=== PATIENT | female | born 1950 | race Caucasian/White ===

== ENCOUNTER 2016-03-17 14:35 | Observation (INO) | payer OTHER ==
[~2016-03-17] VITALS: Ht 157.5 cm; Wt 77.1 kg
[2016-03-17] MEDS ORDERED: ASPI81TA28 PO (15:16)
[2016-03-17] MEDS ORDERED: BENZ100C84 PO (15:16)
[2016-03-17] MEDS ORDERED: ATOR-24 PO (15:16)
[2016-03-17] MEDS ORDERED: LEVO75TA PO (15:16)
[2016-03-17] MEDS ORDERED: LOSA1TAB PO (15:16)
[2016-03-17] MEDS ORDERED: MULT-513 PO (15:16)
[2016-03-17] MEDS ORDERED: ATEN50TA8 PO (15:16)
[2016-03-17] MEDS ORDERED: ASCO10003 PO (15:16)
[2016-03-17] MEDS ORDERED: CALC-335 PO (15:16)
[2016-03-17 15:26] LABS: HEMATOCRIT 40.4 % (37-47); MEAN CELL VOLUME 88.8 fL (80-100); MEAN CORPUSCULAR HEMOGLOBIN 29.7 pg (25-34); MEAN CORPUSCULAR HGB CONC 33.4 g/dl (32-36); MEAN PLATELET VOLUME 10.2 fL (7.4-10.4); PLATELET COUNT 436 K/uL (130-400); RED BLOOD COUNT 4.55 M/uL (4.2-5.4); WHITE BLOOD COUNT 24.38 K/uL (4.8-10.8)
[2016-03-17 15:34] LABS: INR 1.1 (0.9-1.1); PARTIAL THROMBOPLASTIN RATIO 1.2; PROTHROMBIN TIME (PATIENT) 11.4 SECONDS (9.0-12.0)
[2016-03-17 15:43] LABS: BUN/CREATININE RATIO 42.5 (10-20); CALCIUM 9.9 mg/dl (8.5-10.1); CREATININE 1.5 mg/dl (0.60-1.20); POTASSIUM 3.6 mmol/L (3.5-5.1)
[2016-03-17 16:13] LABS: BASO % 0.4 %; BASO ABS # 0.09 K/uL (0-0.2); COMPLETE YES; EOS % 1.1 %; IG% 3.3 %; LYMPH % 41.3 %; LYMPH ABS # 10.08 K/uL (1.2-3.4); MONO % 5.5 %; NEUT % 48.4 %
[2016-03-17] MEDS ORDERED: CIPROFLOXACIN 400MG / 200ML D5W IV STA (17:20)
[2016-03-17] MEDS ORDERED: GADAVIST IV PRN (17:30)
--- NOTE | 2016-03-17 18:12 | EMERGENCY ROOM VISIT NOTE ---
History Report prepared by Kermit: See Abdi Under the Supervision of: Dr. Kong Borja M.D. First contact with patient: 14:43 Chief Complaint: INFECTION Stated Complaint: CELLULITIS Nursing Triage Summary: Pt presents with cellulitis to right foot. Sent by PCP for labs, IV and possible admission. Sx began last Wed "didn't feel well with GI sx and I had a fever." History of Present Illness The patient is a 65 year old female who presents to the Emergency Room with complaints of persistent right foot cellulitis for the past six days. The infection started on the top of her foot and has been spreading over the rest of the foot. She also has pain and tenderness to the infected area. She has not had any recent cuts or injuries and is not sure how she got the infection. The patient was diagnosed with cellulitis by her PCP today, who referred her to the ED for IV antibiotics. She was seen by a PA at her PCP's office six days ago but was not started on any antibiotics. At that time she also had pain to two of the toes on her left foot but is not showing any signs of cellulitis and she has no pain to her left foot at this time. The patient had a fever of 102.4 six days ago, which has since resolved. She also had resolved nausea and dry heaving six days ago. The patient has never had cellulitis before. The patient denies any history of diabetes or other chronic problems. Source of History: patient Onset: six days Position: foot (right) Quality: other (cellulitis) Timing: other (persistent) Associated Symptoms: + fevers (resolved), + nausea (resolved) Review of Systems See HPI for pertinent positives & negatives. A total of 10 systems reviewed and were otherwise negative. Past Medical & Surgical Medical Problems: (1) Cellulitis (2) HLD (hyperlipidemia) Family History Patient reports no known family medical history. Social History Housing Status: lives with family Current/Historical Medications Scheduled Ascorbic Acid (Vitamin C), 1,000 MG PO DAILY Aspirin (Aspirin Ec), 81 MG PO DAILY Atenolol (Tenormin), 50 MG PO QPM Atorvastatin (Lipitor), 40 MG PO QPM Benzonatate (Tessalon Perles), 1 CAP PO BID Calcium Citrate-Vitamin D (Citracal Petites/Vitamin), 1 TAB PO BID Clindamycin HCl (Clindamycin HCl), 1 CAP PO TID Levothyroxine Sodium (Synthroid), 75 MCG PO DAILY Losartan Potassium (Cozaar), 25 MG PO DAILY Multivitamins/Minerals (Mvi With Minerals), 1 TAB PO DAILY Allergies Coded Allergies: No Known Allergies (Unverified , 03/17/16) Physical Exam Vital Signs Date Time Temp Pulse Resp B/P Pulse Ox O2 Delivery O2 Flow Rate FiO2 03/17/16 18:07 68 16 137/71 96 Room Air 03/17/16 16:10 63 18 134/73 97 Room Air 03/17/16 14:39 36.4 64 18 124/66 95 Room Air Physical Exam Constitutional: Vital signs reviewed. Eyes: Pupils are equal round reactive to light. Conjunctiva are noninjected. ENT: Pharynx is clear without erythema or exudate. Mucous membranes are moist. Neck supple without meningeal signs. Respiratory: Clear to auscultation bilaterally. Breath sounds are equal bilaterally. Cardiovascular: Regular rate and rhythm. No rubs or gallops. GI: Soft, nondistended and nontender. Bowel sounds are present. Musculoskeletal: Erythema to the dorsum and medial aspect of the right foot with significant tenderness over the plantar aspect. No tenderness over the ankle. Normal distal cap refill. No signs of cellulitis or tenderness to the left foot. Integumentary: As above. Neurological: The patient is awake and alert. No focal deficits. Psychiatric: Normal affect. Medical Decision & Procedures ER Provider Diagnostic Interpretation: MRI OF THE RIGHT FOOT WITH AND WITHOUT CONTRAST CLINICAL HISTORY: Cellulitis. Evaluate for abscess or osteomyelitis. COMPARISON STUDY: No previous studies for comparison. TECHNIQUE: Utilizing 1.5 Loly magnet and dedicated coil, multiplanar, multi echo imaging of the right foot was performed pre and postcontrast ministration. Injection of 7 cc of Gadavist IV was uneventful. FINDINGS: Alignment of the right foot is anatomic. Tarsometatarsal joints are intact. There is no marrow edema to suggest osteomyelitis. There is extensive edema with associated multiloculated rim-enhancing fluid collections within the flexor musculature and associated flexor tendons involving the right midfoot and forefoot. This suspected inflammatory process extends for approximately 8.6 cm infrarenal extent. The rim-enhancing collections measure up to 3 x 1.2 cm. There are numerous collections. No mass is identified. IMPRESSION: 1. Extensive edema with associated rim-enhancing multiloculated fluid collections within the flexor musculature and associated tendons of the right midfoot. The findings suggest an extensive infectious process with multiple abscesses, cellulitis and possible associated infectious tenosynovitis/myositis. Dr. Dr. Pitt at time of dictation. 2. No evidence of osteomyelitis within the right foot. Electronically signed by: Ken Mcnair M.D. 03/17/2016 6:29 PM Dictated Date/Time: 03/17/2016 6:13 PM Laboratory Results Test 03/17/16 15:17 Prothrombin Time 11.4 SECONDS (9.0-12.0) Prothromb Time International Ratio 1.1 (0.9-1.1) Activated Partial Thromboplast Time 30.3 SECONDS (21.0-31.0) Partial Thromboplastin Ratio 1.2 Laboratory results as reviewed by me. Medications Administered Medications (Trade) Dose Ordered Sig/Nicole Route Start Time Stop Time Status Last Admin Dose Admin Ciprofloxacin/ Dextrose (Cipro / D5w) 400 mg NOW STAT IV 03/17/16 17:20 03/17/16 17:21 DC 03/17/16 17:38 400 MG Acetaminophen (Tylenol Tab) 650 mg Q4H PRN PO 03/17/16 19:15 03/18/16 14:06 DC 03/18/16 00:20 650 MG ED Course 1444: The patient was evaluated in room B4b. A complete history and physical exam was performed. 1633: Went to check on the patient. She is currently at MRI. 1720: Cipro / D5w 400 mg IV. 1806: Spoke with Dr. Warren, [facility] Hospitalist. The patient will be evaluated. Medical Decision This is a 65-year-old female who presents with pain and redness to the right foot. Differential diagnosis includes cellulitis, abscess, osteomyelitis, bacteremia, gout. I did perform a limited focused review of portions of the patient's old chart on the electronic medical record. The patient has had no prior visits to this hospital. I did evaluate the patient as noted above. The patient was sent here by her doctor for IV antibiotics and possible admission. She has had an infection for about 6 days to her right foot. She has significant tenderness to the dorsum of the foot. She has no joint tenderness to the ankle. She has had fevers at home. IV access was established. I did order blood cultures. I did order and review the patient's blood work as noted in the electronic medical record. Her white blood cell count is over 24,000. I did treat her with IV Cipro. Her creatinine is also elevated but we do not have a baseline creatinine. I did order an MRI of the foot to assess for possible osteomyelitis or abscess. I did review the images myself as well as the radiology report as described above. I did discuss the test results with the patient and recommended hospitalization for IV antibiotics. I did discuss case with the hospitalist and community case manager. Consults Time Called: 1800 Consulting Physician: Spoke with Dr. Warren [facility] Hospitalist Returned Call: 180 180: Spoke with Dr. Warren [facility]. The patient will be evaluated. Impression Primary Impression: Right foot infection Scribe Attestation The scribe's documentation has been prepared under my direct and personally reviewed by me in its entirety. I confirm that the note above accurately reflects all work, treatment, procedures, and medical decision making performed by me. Departure Information Dispostion Being Evaluated By Hospitalist Prescriptions Clindamycin HCl (Clindamycin HCl) 300 Mg Cap 1 CAP PO TID for 7 Days, #21 CAP Prov: Corinne Rios PA-C 03/18/16 Patient Instructions A Signature Page, My [facility]
--- NOTE | 2016-03-17 18:31 | DIAGNOSTIC IMAGING REPORT ---
MRI OF THE RIGHT FOOT WITH AND WITHOUT CONTRAST CLINICAL HISTORY: Cellulitis. Evaluate for abscess or osteomyelitis. COMPARISON STUDY: No previous studies for comparison. TECHNIQUE: Utilizing 1.5 Loly magnet and dedicated coil, multiplanar, multi echo imaging of the right foot was performed pre and postcontrast ministration. Injection of 7 cc of Gadavist IV was uneventful. FINDINGS: Alignment of the right foot is anatomic. Tarsometatarsal joints are intact. There is no marrow edema to suggest osteomyelitis. There is extensive edema with associated multiloculated rim-enhancing fluid collections within the flexor musculature and associated flexor tendons involving the right midfoot and forefoot. This suspected inflammatory process extends for approximately 8.6 cm infrarenal extent. The rim-enhancing collections measure up to 3 x 1.2 cm. There are numerous collections. No mass is identified. IMPRESSION: 1. Extensive edema with associated rim-enhancing multiloculated fluid collections within the flexor musculature and associated tendons of the right midfoot. The findings suggest an extensive infectious process with multiple abscesses, cellulitis and possible associated infectious tenosynovitis/myositis. Dr. Dr. Pitt at time of dictation. 2. No evidence of osteomyelitis within the right foot. Electronically signed by: Ken Mcnair M.D. 03/17/2016 6:29 PM Dictated Date/Time: 03/17/2016 6:13 PM
[2016-03-17] MEDS ORDERED: ACETAMINOPHEN 325 MG TAB PO PRN (19:15)
[2016-03-17] MEDS ORDERED: ONDANSETRON INJ 2 MG/ML 2 ML VIAL IV PRN (19:15)
[2016-03-17 20:02] VITALS: O2SAT 98
[2016-03-17 20:50] VITALS: BP 115/71; PULSE 72; TEMP 36.5; Ht 157.5 cm; Wt 77.1 kg
[2016-03-17] MEDS ORDERED: ATORVASTATIN 40 MG TAB PO SCH (21:00)
[2016-03-17] MEDS ORDERED: IV FLUIDS COMPLETED PRN (21:00)
[2016-03-17] MEDS: CLINDAMYCIN IV 300 MG in DEXTROSE 5% 50ML 50 ML IV SCH (21:29)
[2016-03-17] MEDS: BENZONATATE 100MG CAP PO SCH (21:29)
[2016-03-17] MEDS: CALCIUM 600MG + VIT D 400 IU TAB PO SCH (21:29)
--- NOTE | 2016-03-17 21:35 | History and Physical ---
History & Physical Date & Time of Service: Mar 17, 2016 at 21:27 Chief Complaint: Cellulitis Primary Care Physician: Candace Barone M.D. History of Present Illness Source: patient The patient is a 65 year old female who presents to the Emergency Room with complaints of persistent right foot cellulitis for the past week. The infection started on the top of her foot and has been spreading over the rest of the foot. She also has pain and tenderness to the infected area. She has not had any recent cuts or injuries and is not sure how she got the infection. The patient was diagnosed with cellulitis by her PCP today, who referred her to the ED for IV antibiotics. She was seen by a PA at her PCP's office six days ago but was not started on any antibiotics. At that time she also had pain to two of the toes on her left foot but is not showing any signs of cellulitis and she has no pain to her left foot at this time. The patient had a fever of 102.4 six days ago, which has since resolved. The patient has never had cellulitis before. The patient denies any history of diabetes or other chronic problems. Past Medical/Surgical History Medical Problems: (1) HLD (hyperlipidemia) Status: Chronic Family History Patient reports no known family medical history. Social History Smoking Status: Never Smoker Allergies Coded Allergies: No Known Allergies (Unverified , 03/17/16) Home Medications Scheduled Ascorbic Acid (Vitamin C), 1,000 MG PO DAILY Aspirin (Aspirin Ec), 81 MG PO DAILY Atenolol (Tenormin), 50 MG PO QPM Atorvastatin (Lipitor), 40 MG PO QPM Benzonatate (Tessalon Perles), 1 CAP PO BID Calcium Citrate-Vitamin D (Citracal Petites/Vitamin), 1 TAB PO BID Levothyroxine Sodium (Synthroid), 75 MCG PO DAILY Losartan Potassium (Cozaar), 25 MG PO DAILY Multivitamins/Minerals (Mvi With Minerals), 1 TAB PO DAILY Review of Systems Constitutional: + chills, No fever Respiratory: No cough, No sputum, No wheezing Cardiovascular: No chest pain, No orthopnea Abdomen: No diarrhea, No nausea, No vomiting Musculoskeletal: + joint pain, + muscle pain, + swelling Genitourinary - Female: No dysuria, No urinary frequency, No urinary urgency Neurologic: No paralysis, No weakness Physical Exam Vital Signs Date Time Temp Pulse Resp B/P Pulse Ox O2 Delivery O2 Flow Rate FiO2 03/17/16 20:50 36.5 72 16 115/71 Room Air 03/17/16 20:02 68 16 132/58 98 Room Air 03/17/16 18:07 68 16 137/71 96 Room Air 03/17/16 16:10 63 18 134/73 97 Room Air 03/17/16 14:39 36.4 64 18 124/66 95 Room Air General Appearance: WD/WN, + mild distress Neck: supple, no adenopathy Respiratory/Chest: chest non-tender, lungs clear Cardiovascular: regular rate, rhythm, no edema, no gallop Abdomen/GI: non tender, soft Neurologic/Psych: alert, oriented x 3 Skin: warm/dry, + pertinent finding (foot swelling and redness) Diagnostics Laboratory Results Results Past 24 Hours Test 03/17/16 15:17 Range/Units White Blood Count 24.38 4.8-10.8 K/uL Red Blood Count 4.55 4.2-5.4 M/uL Hemoglobin 13.5 12.0-16.0 g/dL Hematocrit 40.4 37-47 % Mean Corpuscular Volume 88.8 80-100 fL Mean Corpuscular Hemoglobin 29.7 25-34 pg Mean Corpuscular Hemoglobin Concent 33.4 32-36 g/dl Platelet Count 436 130-400 K/uL Mean Platelet Volume 10.2 7.4-10.4 fL Neutrophils (%) (Auto) 48.4 % Lymphocytes (%) (Auto) 41.3 % Monocytes (%) (Auto) 5.5 % Eosinophils (%) (Auto) 1.1 % Basophils (%) (Auto) 0.4 % Neutrophils # (Auto) 11.79 1.4-6.5 K/uL Lymphocytes # (Auto) 10.08 1.2-3.4 K/uL Monocytes # (Auto) 1.35 0.11-0.59 K/uL Eosinophils # (Auto) 0.27 0-0.5 K/uL Basophils # (Auto) 0.09 0-0.2 K/uL RDW Standard Deviation 45.3 36.4-46.3 fL RDW Coefficient of Variation 14.0 11.5-14.5 % Immature Granulocyte % (Auto) 3.3 % Immature Granulocyte # (Auto) 0.80 0.00-0.02 K/uL Prothrombin Time 11.4 9.0-12.0 SECONDS Prothromb Time International Ratio 1.1 0.9-1.1 Activated Partial Thromboplast Time 30.3 21.0-31.0 SECONDS Partial Thromboplastin Ratio 1.2 Sodium Level 143 136-145 mmol/L Potassium Level 3.6 3.5-5.1 mmol/L Chloride Level 105 98-107 mmol/L Carbon Dioxide Level 26 21-32 mmol/L Anion Gap 12.0 3-11 mmol/L Blood Urea Nitrogen 64 7-18 mg/dl Creatinine 1.50 0.60-1.20 mg/dl Est Creatinine Clear Calc Drug Dose 36.0 ml/min Estimated GFR () 41.9 Estimated GFR (Non- 36.2 BUN/Creatinine Ratio 42.5 10-20 Random Glucose 95 70-99 mg/dl Calcium Level 9.9 8.5-10.1 mg/dl Microbiology Results 03/17/16 Blood Culture, Received Pending 03/17/16 Blood Culture, Received Pending Impression Assessment and Plan Pt presents with right foot swelling, redness and pain for past 7 days Right foot cellulitis - Will admit to med floor at this time. No hx of trauma per patient. Elev WBC and tender to touch. Will start on IV clindamycin at this time. Awaiting MRI of foot. Will check HgA1C. JUSTIN - Will hold losartan and start on IVF, cont to trend BMP HTN - Cont, will cont on atenolol Dyslipidemia - Cont on lipitor Advanced Directives Existing Advance Directive: Yes Existing Living Will: Yes Existing Power of [employer] Apprentice: Yes VTE Prophylaxis VTE Risk Assessment Done? Y/N: Yes Risk Level: Moderate
[2016-03-18] MEDS: SODIUM CHLORIDE 0.9% 1000ML 1,000 ML IV SCH ×2 (00:12→09:24)
[2016-03-18] MEDS: CLINDAMYCIN IV 300 MG in DEXTROSE 5% 50ML 50 ML IV SCH ×2 (05:20→11:50)
[2016-03-18] MEDS ORDERED: LEVOTHYROXINE 75 MCG TAB PO SCH (06:30)
[2016-03-18 07:28] LABS: ESTIMATED AVERAGE GLUCOSE 120 mg/dl; HA1C FLAG Normal (Normal)
[2016-03-18 07:34] VITALS: BP 106/65; PULSE 57; TEMP 36.7; O2SAT 96
[2016-03-18 07:44] LABS: HEMATOCRIT 35.9 % (37-47); MEAN CELL VOLUME 89.5 fL (80-100); MEAN CORPUSCULAR HEMOGLOBIN 29.9 pg (25-34); MEAN CORPUSCULAR HGB CONC 33.4 g/dl (32-36); MEAN PLATELET VOLUME 9.9 fL (7.4-10.4); PLATELET COUNT 408 K/uL (130-400); RED BLOOD COUNT 4.01 M/uL (4.2-5.4); WHITE BLOOD COUNT 20.76 K/uL (4.8-10.8)
[2016-03-18] MEDS ORDERED: ASPIRIN 81 MG ECTAB PO SCH (08:00)
[2016-03-18] MEDS ORDERED: CEROVITE ADV FORMULA TAB PO SCH (08:00)
[2016-03-18] MEDS ORDERED: LOSARTAN POTASSIUM 25 MG TAB PO SCH (08:00)
[2016-03-18] MEDS ORDERED: ASCORBIC ACID 500 MG TAB PO SCH (08:00)
[2016-03-18 08:19] LABS: BUN/CREATININE RATIO 36.3 (10-20); CALCIUM 8.9 mg/dl (8.5-10.1); CREATININE 1.1 mg/dl (0.60-1.20); POTASSIUM 3.6 mmol/L (3.5-5.1)
[2016-03-18] MEDS: CALCIUM 600MG + VIT D 400 IU TAB PO SCH (09:18)
[2016-03-18] MEDS: BENZONATATE 100MG CAP PO SCH (09:18)
[2016-03-18 09:31] LABS: BASO % 0.4 %; BASO ABS # 0.08 K/uL (0-0.2); COMPLETE YES; EOS % 1.6 %; IG% 4.7 %; LYMPH % 42.6 %; LYMPH ABS # 8.85 K/uL (1.2-3.4); MONO % 6.8 %; NEUT % 43.9 %; SMUDGE CELLS PRESENT
[2016-03-18] MEDS ORDERED: CLC/300 PO (10:31)
--- NOTE | 2016-03-18 10:39 | Discharge Instructions ---
Discharge Instructions Admission Reason for Admission: Cellulitis Discharge Discharge Diagnosis / Problem: Cellulitis R Discharge Goals Goal(s): Decrease discomfort, Improve function Activity Recommendations Activity Limitations: resume your previous activity Lifting Limitations: none Exercise/Sports Limitations: none Shower/Bathe: no limitations Driving or Machine Use: no limitations . Instructions / Follow-Up Instructions / Follow-Up You have been given an antibiotic, Clindamycin for cellulitis (skin infection) of the right lower leg. Please continue taking this three times daily for the next 7 days. Eat a yogurt daily while taking this antibiotic to promote the growth of healthy normal bacteria in your gut. If you develop diarrhea please call your PCP and discuss this. An MRI was completed while admitted and was normal. There was no indication of osteomyelitis (infection which involved the bones of your foot). Your Hemoglobin A1C was checked while admitted and was 5.8. Greater than 6.0 is considered diabetic. Start eating a healthier diet with fruits and vegetables, and less carbohydrates such as pasta, bread, or starchy vegetables like potatoes and corn. Exercise at least 5 times per week for 20 minutes; getting your heart rate elevated is good for your heart. Have your PCP recheck this in 3 months. Continue taking other medications as prescribed. Follow up with your PCP within 1 week to check the response of cellulitis to the antibiotic. You will need to call and make this appointment Current Hospital Diet Patient's current hospital diet: Regular Diet Discharge Diet Recommended Diet: Regular Diet Pending Studies Studies pending at discharge: no Laboratory Results Last 24 Hours Test 03/17/16 15:17 03/17/16 22:00 03/18/16 01:00 03/18/16 01:08 White Blood Count 24.38 K/uL Red Blood Count 4.55 M/uL Hemoglobin 13.5 g/dL Hematocrit 40.4 % Mean Corpuscular Volume 88.8 fL Mean Corpuscular Hemoglobin 29.7 pg Mean Corpuscular Hemoglobin Concent 33.4 g/dl Platelet Count 436 K/uL Mean Platelet Volume 10.2 fL Neutrophils (%) (Auto) 48.4 % Lymphocytes (%) (Auto) 41.3 % Monocytes (%) (Auto) 5.5 % Eosinophils (%) (Auto) 1.1 % Basophils (%) (Auto) 0.4 % Neutrophils # (Auto) 11.79 K/uL Lymphocytes # (Auto) 10.08 K/uL Monocytes # (Auto) 1.35 K/uL Eosinophils # (Auto) 0.27 K/uL Basophils # (Auto) 0.09 K/uL RDW Standard Deviation 45.3 fL RDW Coefficient of Variation 14.0 % Immature Granulocyte % (Auto) 3.3 % Immature Granulocyte # (Auto) 0.80 K/uL Prothrombin Time 11.4 SECONDS Prothromb Time International Ratio 1.1 Activated Partial Thromboplast Time 30.3 SECONDS Partial Thromboplastin Ratio 1.2 Sodium Level 143 mmol/L Potassium Level 3.6 mmol/L Chloride Level 105 mmol/L Carbon Dioxide Level 26 mmol/L Anion Gap 12.0 mmol/L Blood Urea Nitrogen 64 mg/dl Creatinine 1.50 mg/dl Est Creatinine Clear Calc Drug Dose 36.0 ml/min Estimated GFR () 41.9 Estimated GFR (Non- 36.2 BUN/Creatinine Ratio 42.5 Random Glucose 95 mg/dl Calcium Level 9.9 mg/dl Estimated Average Glucose 120 mg/dl Hemoglobin A1c 5.8 % Erythrocyte Sedimentation Rate 69 mm/hr C-Reactive Protein 7.59 mg/dl Test 03/18/16 07:18 White Blood Count 20.76 K/uL Red Blood Count 4.01 M/uL Hemoglobin 12.0 g/dL Hematocrit 35.9 % Mean Corpuscular Volume 89.5 fL Mean Corpuscular Hemoglobin 29.9 pg Mean Corpuscular Hemoglobin Concent 33.4 g/dl Platelet Count 408 K/uL Mean Platelet Volume 9.9 fL Neutrophils (%) (Auto) 43.9 % Lymphocytes (%) (Auto) 42.6 % Monocytes (%) (Auto) 6.8 % Eosinophils (%) (Auto) 1.6 % Basophils (%) (Auto) 0.4 % Neutrophils # (Auto) 9.10 K/uL Lymphocytes # (Auto) 8.85 K/uL Monocytes # (Auto) 1.42 K/uL Eosinophils # (Auto) 0.34 K/uL Basophils # (Auto) 0.08 K/uL RDW Standard Deviation 45.8 fL RDW Coefficient of Variation 13.9 % Immature Granulocyte % (Auto) 4.7 % Immature Granulocyte # (Auto) 0.97 K/uL Smudge Cells PRESENT Blood Smear Review Sodium Level 144 mmol/L Potassium Level 3.6 mmol/L Chloride Level 110 mmol/L Carbon Dioxide Level 23 mmol/L Anion Gap 11.0 mmol/L Blood Urea Nitrogen 40 mg/dl Creatinine 1.10 mg/dl Est Creatinine Clear Calc Drug Dose 49.0 ml/min Estimated GFR () 61.0 Estimated GFR (Non- 52.6 BUN/Creatinine Ratio 36.3 Random Glucose 96 mg/dl Calcium Level 8.9 mg/dl Hemoglobin A1c Test 03/17/16 22:00 Range/Units Estimated Average Glucose 120 mg/dl Hemoglobin A1c 5.8 H 4.5-5.6 % Medical Emergencies . Who to Call and When: Medical Emergencies: If at any time you feel your situation is an emergency, please call 911 immediately. . Non-Emergent Contact Non-Emergency issues call your: Primary Care Provider Call Non-Emergent contact if: you have a fever, your pain is not controlled, your pain is worsening, you have any medication questions . Past History Medical & Surgical History: (1) Cellulitis . "Provider Documentation" section prepared by Kathy Rios. VTE Core Measure Inpt VTE Proph given/why not?: Abena Reeves
--- NOTE | 2016-03-18 10:52 | Discharge Summary ---
Discharge Summary Admission Date: Mar 17, 2016 at 19:16 Discharge Date: Mar 18, 2016 Discharge Disposition: Home Principal Diagnosis: Cellulitis right lower extremity Problems/Secondary Diagnoses: Hyperlipidemia, Hypothyroidism, Acute Kidney Injury. Procedures: MRI OF THE RIGHT FOOT WITH AND WITHOUT CONTRAST CLINICAL HISTORY: Cellulitis. Evaluate for abscess or osteomyelitis. COMPARISON STUDY: No previous studies for comparison. TECHNIQUE: Utilizing 1.5 Loly magnet and dedicated coil, multiplanar, multi echo imaging of the right foot was performed pre and postcontrast ministration. Injection of 7 cc of Gadavist IV was uneventful. FINDINGS: Alignment of the right foot is anatomic. Tarsometatarsal joints are intact. There is no marrow edema to suggest osteomyelitis. There is extensive edema with associated multiloculated rim-enhancing fluid collections within the flexor musculature and associated flexor tendons involving the right midfoot and forefoot. This suspected inflammatory process extends for approximately 8.6 cm infrarenal extent. The rim-enhancing collections measure up to 3 x 1.2 cm. There are numerous collections. No mass is identified. IMPRESSION: 1. Extensive edema with associated rim-enhancing multiloculated fluid collections within the flexor musculature and associated tendons of the right midfoot. The findings suggest an extensive infectious process with multiple abscesses, cellulitis and possible associated infectious tenosynovitis/myositis. Dr. Dr. Pitt at time of dictation. 2. No evidence of osteomyelitis within the right foot. Electronically signed by: Ken Mcnair M.D. 03/17/2016 6:29 PM Dictated Date/Time: 03/17/2016 6:13 PM Consultations: None (Corinne Rios, ROBIN) Medication Reconciliation New Medications: Clindamycin HCl (Clindamycin HCl) 300 Mg Cap 1 CAP PO TID for 7 Days, #21 CAP Continued Medications: Ascorbic Acid (Vitamin C) 1,000 Mg Tab 1000 MG PO DAILY Aspirin (Aspirin Ec) 81 Mg Tab 81 MG PO DAILY Atenolol (Tenormin) 50 Mg Tab 50 MG PO QPM, TAB Atorvastatin (Lipitor) 40 Mg Tab 40 MG PO QPM, TAB Benzonatate (Tessalon Perles) Unknown Strength Cap 1 CAP PO BID, CAP Calcium Citrate-Vitamin D (Citracal Petites/Vitamin) 1 Tab Tab 1 TAB PO BID Levothyroxine Sodium (Synthroid) 75 Mcg Tab 75 MCG PO DAILY, TAB Losartan Potassium (Cozaar) 25 Mg Tab 25 MG PO DAILY, TAB Multivitamins/Minerals (Mvi With Minerals) Tab 1 TAB PO DAILY, TAB Discharge Exam The patient was seen and examined this morning. She is doing well. States redness in her foot has significantly improved. She reports pain is still present with moveing but this too is greatly improved. She is able to walk on it with walker assistance. Pt denies fever, chills, sweats. Review of Systems: Constitutional: No chills, No fever, No sweats Respiratory: No cough, No dyspnea on exertion, No shortness of breath Cardiovascular: No chest pain, No palpitations Abdomen: No nausea, No pain, No vomiting Musculoskeletal: No joint pain Genitourinary - Female: No dysuria Neurologic: No balance problems, No numbness/tingling, No weakness Integumentary: No itch, No rash Physical Exam: General Appearance: WD/WN, no apparent distress, + obese Eyes: PERRL, EOMI ENT: hearing grossly normal, pharynx normal Neck: no JVD Respiratory/Chest: lungs clear, normal breath sounds, no respiratory distress, no accessory muscle use Cardiovascular: regular rate, rhythm, no JVD, normal peripheral pulses Abdomen / GI: normal bowel sounds, non tender, soft Extremities: no pedal edema, + pertinent finding (Mild edema and erythema of the RLE is contained to the dorsal aspect of the food and arch of her foot. ) Neurologic/Psychiatric: normal mood/affect, oriented x 3 Skin: normal color ( with exception of RLE foot as noted above), warm/dry (Corinne Rios PA-C) Hospital Course Admission H&P per Dr. Cosmo Warren: The patient is a 65 year old female who presents to the Emergency Room with complaints of persistent right foot cellulitis for the past week. The infection started on the top of her foot and has been spreading over the rest of the foot. She also has pain and tenderness to the infected area. She has not had any recent cuts or injuries and is not sure how she got the infection. The patient was diagnosed with cellulitis by her PCP today, who referred her to the ED for IV antibiotics. She was seen by a PA at her PCP's office six days ago but was not started on any antibiotics. At that time she also had pain to two of the toes on her left foot but is not showing any signs of cellulitis and she has no pain to her left foot at this time. The patient had a fever of 102.4 six days ago, which has since resolved. The patient has never had cellulitis before. The patient denies any history of diabetes or other chronic problems.Pt presents with right foot swelling, redness and pain for past 7 days General Appearance: WD/WN, + mild distress Neck: supple, no adenopathy Respiratory/Chest: chest non-tender, lungs clear Cardiovascular: regular rate, rhythm, no edema, no gallop Abdomen/GI: non tender, soft Neurologic/Psych: alert, oriented x 3 Skin: warm/dry, + pertinent finding (foot swelling and redness) Hospital Course Pt was admitted overnight for administration of IV clindamycin. Erythema and edema significantly improved over the course of one day, so was able to be discharged on oral antibiotics. Upon admission she also had JUSTIN, with Cr=1.6, which trended downward to 1.1 with fluids. She is being discharged to home today. Right foot cellulitis - Continue clindamycin IV x 1 more dose and then will discharge home on PO 300 mg TID x 7 days. - WBC trended downward from 24K to 20K - Pain and swelling much better per the pt report. - Will ask PCP to follow up with this next week and assess antibiotic response. - MRI foot was negative for osteomyelitis involvement. Borderline Diabetic -Hgb A1C = 5.8 - Discussion was held regarding diet and exercise with the patient and she explained understanding. JUSTIN - Resolved, Cr. trended downward - Restart [employer] losartan HTN - Cont, will cont on atenolol Dyslipidemia - Cont on lipitor FULL CODE Total Time Spent: Greater than 30 minutes This includes examination of the patient, discharge planning, medication reconciliation, and communication with other providers. (Corinne Rios PA-C) Discharge Instructions Please refer to the electronic Patient Visit Report (Discharge Instructions) for additional information. (Corinne Rios PA-C) agree with above (Tony Mendes MD) Follow-Up Follow up with your Primary Care Provider within 1 week. (Corinne Rios PA-C)
[2016-03-18 12:56] VITALS: BP 106/65; PULSE 57; TEMP 36.7; O2SAT 96
--- NOTE | 2016-03-18 15:00 | Progress Note ---
Progress Note I called to the patient due to concerns of new rare smudge cells and plasma cells on CBC with diff with elevated WBCs with peripheral smear results that became available to me after patient was discharged home today. Granulocytes and lymphocytes predominant picture. I explained that current cells could be due to reaction to inflammation/ infection, but also lymphoproliferative disorders/CLL needs to be ruled out. Therefore, will send her a script for CBC with diff to be checked in 1 week and follow up with Dr Barone for further workup as needed in 1-2 weeks. Patient may require a flow cytometry when infection/inflammation resolves. She understood everything we discussed and had no other questions.
--- NOTE | 2016-03-24 12:40 | EDITING REQUIRED CODING QUERY ---
SUPPORTING DIAGNOSIS NEEDED A supporting diagnosis is required for the test/procedure performed on this patient in order for us to be reimbursed by the patient's insurance. Please provide a supporting diagnosis for the following test/procedure listed below next to the test name along with your signature. *If there is no additional diagnosis for this patient that would support the following test/procedure please document that below next to the test/procedure. Test(s)/Procedure(s) that require a supporting diagnosis: * GLYCATED HEMOGLOBIN DIAGNOSIS: DMII * DOS: 03/17/16 Provider Signature: Date: Thank you Cecily Jonas Health Information Management For questions please call [phone]
== END 2016-03-18 13:15 | disposition home or self-care (01) ==
LOC: ENRESERVTM → ENRESERVDT → C.EDB 14:38 → C.MS4W 19:16
PROVIDERS: ADMIT Hospitalist; ATTEND Hospitalist
DX: L03.115 Cellulitis of right lower limb (principal); E78.5 Hyperlipidemia, unspecified; E03.9 Hypothyroidism, unspecified; I10 Essential (primary) hypertension; N17.9 Acute kidney failure, unspecified; Z79.82 Long term (current) use of aspirin; E11.9 Type 2 diabetes mellitus without complications